=== PATIENT | female | born 1995 | race Caucasian/White ===

== ENCOUNTER 2017-01-17 12:31 | Emergency (ER) | payer BC ==
[2017-01-17 13:05] VITALS: BP 131/66
--- NOTE | 2017-01-17 13:50 | UC ---
Throat Pain/Nasal Brain HPI - HPI Summary HPI Summary: Fever over 102F, ST, aches since yesterday. Pt gets recurrent tonsillitis and is scheduled to get her tonsils out in March. Her ENT recommends she be tx with abx when she has a fever. - History of Current Complaint Chief Complaint: UCRespiratory Stated Complaint: SORE THROAT FEVER Time Seen by Provider: 01/17/17 13:39 Hx Obtained From: Patient Hx Last Menstrual Period: 12/19/16 ?: No Onset/Duration: Gradual Onset Severity: Moderate Cough: None Associated Signs & Symptoms: Positive: Fever - Allergies/Home Medications Allergies/Adverse Reactions: Allergies Allergy/AdvReac Type Severity Reaction Status Date / Time No Known Allergies Allergy Verified 01/17/17 13:05 PMH/Surg Hx/FS Hx/Imm Hx Cardiovascular History Of: Reports: Cardiac Disorders - s/p ablation for SVT - Surgical History Surgical History: Yes Surgery Procedure, Year, and Place: Cardiac Ablation for SVT, 2009, [facility] - Family History Known Family History: Positive: None - Social History Occupation: Student Lives: Alone Alcohol Use: None Substance Use Type: None Smoking Status (MU): Never Smoked Tobacco - Immunization History Most Recent Influenza Vaccination: Not the Season Review of Systems Constitutional: Fever Skin: Negative Eyes: Negative ENT: Sore Throat Respiratory: Negative Cardiovascular: Negative Gastrointestinal: Negative Genitourinary: Negative Motor: Negative Neurovascular: Negative Musculoskeletal: Negative Neurological: Negative Psychological: Negative All Other Systems Reviewed And Are Negative: Yes Physical Exam Triage Information Reviewed: Yes Appearance: Well-Appearing, No Pain Distress, Well-Nourished Vital Signs: Initial Vital Signs Temp 97.8 F 01/17/17 12:59 Pulse 100 01/17/17 12:59 Resp 16 01/17/17 12:59 BP 131/66 01/17/17 12:59 Pulse Ox 98 01/17/17 12:59 Vital Signs Reviewed: Yes Eye Exam: Normal Eyes: Positive: Conjunctiva Clear ENT: Positive: Hearing grossly normal, Pharyngeal erythema, TMs normal, Tonsillar swelling - marked Dental Exam: Normal Neck: Positive: Tenderness @, Enlarged Nodes @ - tonsillar, very enlarged, very tender Respiratory Exam: Normal Respiratory: Positive: Chest non-tender, Lungs clear, Normal breath sounds, No respiratory distress, No accessory muscle use Cardiovascular: Positive: Tachycardia Abdominal Exam: Normal Abdomen Description: Positive: No Organomegaly, Soft Musculoskeletal Exam: Normal Neurological Exam: Normal Neurological: Positive: Alert Psychological Exam: Normal Skin Exam: Normal Throat Pain/Nasal Course/Dx - Differential Dx/Diagnosis Provider Diagnoses: tonsillitis Discharge - Discharge Plan Condition: Stable Disposition: HOME Prescriptions: Amoxicillin (*) [Amoxicillin 875 MG (*)] 875 mg PO BID #20 tab Patient Education Materials: Tonsillitis (ED) Referrals: Non Staff,Doctor [Primary Care Provider] - Additional Instructions: Please follow up with your ENT specialist for routine care.
== END 2017-01-17 13:45 | disposition home or self-care (01) ==
LOC: UCCORT 12:31
DX: J03.90 Acute tonsillitis, unspecified (principal)
CPT/HCPCS: 99212; G0463

== ENCOUNTER 2017-02-15 18:44 | Emergency (ER) | payer BC ==
--- NOTE | 2017-02-15 20:42 | UC ---
Throat Pain/Nasal Brain HPI - HPI Summary HPI Summary: 21 yo female with sore throat x 1 day had strep recently hx frequent strep scheduled to have tonsils out in March of this yr - History of Current Complaint Chief Complaint: UCGeneralIllness Stated Complaint: SORE THROAT Time Seen by Provider: 02/15/17 20:38 Hx Obtained From: Patient Hx Last Menstrual Period: 01/20/17 Onset/Duration: Gradual Onset, Lasting Hours Severity: Mild Pain Intensity: 4 Pain Scale Used: 0-10 Numeric - Epiglottits Risk Factors Epiglottis Risk Factors: Negative - Allergies/Home Medications Allergies/Adverse Reactions: Allergies Allergy/AdvReac Type Severity Reaction Status Date / Time No Known Allergies Allergy Verified 02/15/17 19:02 PMH/Surg Hx/FS Hx/Imm Hx Previously Healthy: Yes Cardiovascular History Of: Reports: Cardiac Disorders - s/p ablation for SVT - Surgical History Surgical History: Yes Surgery Procedure, Year, and Place: Cardiac Ablation for SVT, 2009, [facility] - Family History Known Family History: Negative: Cardiac Disease, Hypertension, Diabetes - Social History Alcohol Use: None Substance Use Type: None Smoking Status (MU): Never Smoked Tobacco - Immunization History Most Recent Influenza Vaccination: Not the Season Review of Systems Constitutional: Fever - low grade Skin: Negative Eyes: Negative ENT: Sore Throat Respiratory: Negative Cardiovascular: Negative Gastrointestinal: Negative Genitourinary: Negative Motor: Negative Neurovascular: Negative Musculoskeletal: Negative Neurological: Negative Psychological: Negative All Other Systems Reviewed And Are Negative: Yes Physical Exam Triage Information Reviewed: Yes Appearance: Well-Appearing, No Pain Distress, Well-Nourished Vital Signs: Initial Vital Signs Temp 98 F 02/15/17 18:58 Pulse 101 02/15/17 18:58 Resp 16 02/15/17 18:58 BP 118/64 02/15/17 18:58 Pulse Ox 100 02/15/17 18:58 Eyes: Positive: Conjunctiva Clear ENT: Positive: Hearing grossly normal, TM bulging, Tonsillar swelling, Tonsillar exudate. Negative: Nasal congestion, Nasal drainage Neck: Positive: Supple, Nontender, Enlarged Nodes @ - anterior cervical Respiratory: Positive: Lungs clear, Normal breath sounds, No respiratory distress, No accessory muscle use Cardiovascular: Positive: RRR, No Murmur Musculoskeletal: Positive: ROM Intact, No Edema Neurological: Positive: Alert, Muscle Tone Normal Psychological Exam: Normal Skin Exam: Normal Throat Pain/Nasal Course/Dx - Course Course Of Treatment: RS (-) - Differential Dx/Diagnosis Provider Diagnoses: acute exudative tonsillitis Discharge - Discharge Plan Condition: Stable Disposition: HOME Prescriptions: Cephalexin CAP* [Keflex CAP*] 500 mg PO BID #20 cap Patient Education Materials: Tonsillitis (ED) Referrals: Non Staff,Doctor [Primary Care Provider] - Additional Instructions: recheck in 3-4 days if not better
[2017-02-15] MEDS ORDERED: Cephalexin CAP* 500 MG PO ONE (20:56)
[2017-02-15 21:06] VITALS: BP 128/70
== END 2017-02-15 21:06 | disposition home or self-care (01) ==
LOC: UCCORT 18:44
DX: J03.90 Acute tonsillitis, unspecified (principal)
CPT/HCPCS: 87651; 99212; A9270-GY; G0463